=== PATIENT | male | born 1975 | race American Indian/Alaskan Native ===

== ENCOUNTER 2017-05-03 09:46 | Emergency (ER) | payer BC ==
[2017-05-03 10:51] LABS: Eosinophils % (Auto) 3.9 % (0.0-4.3); Hematocrit 42.1 % (35.5-45.6); Hemoglobin 13.6 gm/dl (11.8-15.2); Mean Corpuscular HGB Conc 32 % (32-34); Mean Corpuscular Volume 78 fl (84-94); Platelet Count 198 K/mm3 (140-440); Red Blood Count 5.38 M/mm3 (3.65-5.03); Red Cell Distribution Width 16.4 % (13.2-15.2); White Blood Count 4.9 K/mm3 (4.5-11.0)
[2017-05-03 10:53] LABS: Mean Corpuscular Hemoglobin 25 pg (28-32)
[2017-05-03 11:06] LABS: Anion Gap 18 mmol/L; Blood Urea Nitrogen 11 mg/dL (9-20); Calcium 8.8 mg/dL (8.4-10.2); Carbon Dioxide 25 mmol/L (22-30); Chloride 102.2 mmol/L (98-107); Glucose 130 mg/dL (75-100); Potassium 3.7 mmol/L (3.6-5.0); Sodium 141 mmol/L (137-145)
[2017-05-03 11:35] LABS: Bilirubin,Urine NEG (Negative); Blood,Urine MOD (Negative); Ketones,Urine NEG (Negative); Leukocyte Esterase,Urine NEG (Negative); Mucus,Urine FEW /HPF; Nitrite,Urine NEG (Negative); Protein,Urine <15 mg/dL mg/dL (Negative); Urobilinogen,Urine < 2.0 mg/dL (<2.0)
[2017-05-03] MEDS ORDERED: TORADOL IV ONE (11:47)
--- NOTE | 2017-05-03 14:11 | Emergency Department Report ---
ED General Adult HPI - General Chief complaint: Urogenital-Male Stated complaint: KIDNEY PAIN Time Seen by Provider: 05/03/17 14:09 Source: patient Mode of arrival: Ambulatory Limitations: No Limitations - History of Present Illness Initial comments: Patient is a 41-year-old male with a past medical history of high blood pressure and kidney stones. Patient states that earlier today he is experiencing right colic pain is severe, 9/10 it is sharp and non radiating. Nothing makes the pain better or worse. He states that he has had similar pain before in the past and this feels like a previous kidney stone episode. Patient denies nausea or vomiting. Severity scale (0 -10): 10 - Related Data Home Medications Medication Instructions Recorded Confirmed Last Taken Hydrochlorothiazide [Hctz] 0 mg PO QDAY 12/12/15 12/12/15 12/12/15 0 MG Previous Rx's Medication Instructions Recorded Last Taken Type Albuterol Sulfate [Ventolin HFA] 2 puff IH Q4H PRN #2 hfa.aer.ad 03/14/15 Rx 2 PUFF Albuterol Sulfate [Albuterol 0.63% 0.63 mg IH Q4H PRN #25 neb 09/16/15 12/12/15 Rx NEBS] 0.63 MG Albuterol Sulfate [Ventolin HFA] 2 puff IH Q4H PRN #1 hfa.aer.ad 09/16/15 Rx 2 PUFF ALBUTEROL Inhaler [ProAir HFA 2 puff INHALATION Q4H PRN #1 inha 12/13/15 Unknown Rx Inhaler] predniSONE [Deltasone] 20 mg PO BID #10 tab 12/13/15 Unknown Rx Allergies Allergy/AdvReac Type Severity Reaction Status Date / Time No Known Allergies Allergy Verified 05/03/17 10:24 ED Review of Systems ROS: Stated complaint: KIDNEY PAIN Other details as noted in HPI Constitutional: denies: chills, fever Eyes: denies: eye pain, eye discharge, vision change ENT: denies: ear pain, throat pain Respiratory: denies: cough, shortness of breath, wheezing Cardiovascular: denies: chest pain, palpitations Endocrine: no symptoms reported Gastrointestinal: as per HPI, nausea, other (right flank pain ). denies: diarrhea Genitourinary: denies: urgency, dysuria Musculoskeletal: denies: back pain, joint swelling, arthralgia Skin: denies: rash, lesions Neurological: denies: headache, weakness, paresthesias Psychiatric: denies: anxiety, depression Hematological/Lymphatic: denies: easy bleeding, easy bruising ED Past Medical Hx - Past Medical History Previous Medical History?: Yes Hx Hypertension: Yes (noncompliance) Hx Heart Attack/AMI: Yes Hx Asthma: Yes - Surgical History Additional Surgical History: right hand surgery - Social History Smoking Status: Current Every Day Smoker Substance Use Type: Alcohol - Medications Home Medications: Home Medications Medication Instructions Recorded Confirmed Last Taken Type Albuterol Sulfate [Ventolin HFA] 2 puff IH Q4H PRN #2 hfa.aer.ad 03/14/1512/12/15 Rx 2 PUFF Albuterol Sulfate [Albuterol 0.63% 0.63 mg IH Q4H PRN #25 neb 09/16/15 12/12/15 12/12/15 Rx NEBS] 0.63 MG Albuterol Sulfate [Ventolin HFA] 2 puff IH Q4H PRN #1 hfa.aer.ad 09/16/1512/12/15 Rx 2 PUFF Hydrochlorothiazide [Hctz] 0 mg PO QDAY 12/12/15 12/12/15 12/12/15 History 0 MG ALBUTEROL Inhaler [ProAir HFA 2 puff INHALATION Q4H PRN #1 inha 12/13/15 Unknown Rx Inhaler] predniSONE [Deltasone] 20 mg PO BID #10 tab 12/13/15 Unknown Rx ED Physical Exam - General Limitations: No Limitations General appearance: alert, in no apparent distress - Head Head exam: Present: atraumatic - Eye Eye exam: Present: normal appearance, PERRL, EOMI - ENT ENT exam: Present: normal exam - Neck Neck exam: Present: normal inspection - Respiratory Respiratory exam: Present: normal lung sounds bilaterally - Cardiovascular Cardiovascular Exam: Present: regular rate, normal rhythm - GI/Abdominal GI/Abdominal exam: Present: soft. Absent: distended, tenderness - Rectal Rectal exam: Present: deferred - Extremities Exam Extremities exam: Present: normal inspection, full ROM - Back Exam Back exam: Present: normal inspection - Neurological Exam Neurological exam: Present: alert, oriented X3 - Psychiatric Psychiatric exam: Present: normal affect - Skin Skin exam: Present: warm, dry ED Course Vital Signs 05/03/17 05/03/17 05/03/17 10:24 13:34 14:00 Temperature 98.5 F Pulse Rate 83 74 Respiratory 16 16 18 Rate Blood Pressure 156/112 Blood Pressure 148/94 [Left] O2 Sat by Pulse 97 100 Oximetry 05/03/17 18:57 Temperature 98.8 F Pulse Rate 68 Respiratory 16 Rate Blood Pressure Blood Pressure 155/110 [Left] O2 Sat by Pulse 96 Oximetry - Reevaluation(s) Reevaluation #1: 05/03/17 17:01 Patient states that his renal colic pain is back. 4 mg of morphine has been ordered. Discussed findings of CT scan with patient he has a 6 mm mildly obstructing stone. Reevaluation #2: 05/03/17 19:47 Patient states that he wants to go by private vehicle. Once his to drive him. Since patient at that's not possible. Patient became upset and angry and threatening to leave. Discussed with patient about risks of leaving against medical transcriber. Patient calmed down. N agree to stay and be transferred. Patient's pain is well-controlled vital signs are wnl. - Consultations Consultation #1: 05/03/17 19:[address] Silverio of [facility]. Unable to obtain a urology consult patient will be a direct admit to the inpatient hospital discussed with patient and he agrees with plan patient will be transported by EMS. Patient's pain is currently under control. ED Medical Decision Making - Lab Data Result diagrams: 05/03/17 10:36 05/03/17 10:36 Laboratory Tests 05/03/17 05/03/17 05/03/17 10:25 10:36 10:36 WBC 4.9 RBC 5.38 H Hgb 13.6 Hct 42.1 MCV 78 L MCH 25 L MCHC 32 RDW 16.4 H Plt Count 198 Lymph % (Auto) 29.4 Crawford % (Auto) 6.7 Eos % (Auto) 3.9 Baso % (Auto) 1.0 Lymph # 1.4 Crawford # 0.3 Eos # 0.2 Baso # 0.0 Seg Neutrophils % 59.0 Seg Neutrophils # 2.9 Sodium 141 Potassium 3.7 Chloride 102.2 Carbon Dioxide 25 Anion Gap 18 BUN 11 Creatinine 1.1 Estimated GFR > 60 BUN/Creatinine Ratio 10.00 Glucose 130 H Calcium 8.8 Urine Color Yellow Urine Turbidity Clear Urine pH 6.0 Ur Specific Given 1.017 Urine Protein <15 mg/dl Urine Glucose (UA) Neg Urine Ketones Neg Urine Blood Mod Urine Nitrite Neg Urine Bilirubin Neg Urine Urobilinogen < 2.0 Ur Leukocyte Esterase Neg Urine WBC (Auto) 2.0 Urine RBC (Auto) 39.0 U Epithel Cells (Auto) < 1.0 Urine Mucus Few - Radiology Data Radiology results: report reviewed, image reviewed - Medical Decision Making Chief medical diagnosis: Kidney stone Differential diagnoses: UTI pyleonephritis, pancreatitis Will get cbc, cmp, analgesic medication, ct scan and fluids. CT scan showed a 6 mm mildly obstructing stone in right ureter with moderate hydronephrosis. Discussed results with patient and the need for urology evaluation. We'll consult urology and will transfer patient due to not having available services Hospital. Critical care attestation.: If time is entered above; I have spent that time in minutes in the direct care of this critically ill patient, excluding procedure time. ED Disposition Clinical Impression: Renal colic, Right nephrolithiasis, Acute right flank pain Disposition: [id number] ANOTHER TYPE HLTHCARE Is pt being admited?: No Does the pt Need Aspirin: No Condition: Fair Referrals: PRIMARY CAREMD [Primary Care Provider] - 3-5 Days Time of Disposition: 20:26
[2017-05-03] MEDS ORDERED: MORPHINE IV ONE ×2 (14:29→17:01)
[2017-05-03] MEDS ORDERED: ZOFRAN ONE (14:38)
[2017-05-03] MEDS ORDERED: ZOFRAN IV ONE (14:45)
--- NOTE | 2017-05-03 15:36 | Cat Scan Report ---
CT OF THE ABDOMEN AND PELVIS WITHOUT CONTRAST HISTORY: Right flank pain. TECHNIQUE: Helical CT without contrast. Sagittal and coronal reformatted images. FINDINGS: A 6 x 6 x 5 mm calculus is identified in the distal right ureter. There is moderate upstream right hydronephrosis and right perinephric stranding. No left ureteral stones. There are 3 punctate calyceal stones in the right kidney and one punctate calyceal stone in the left kidney. Within the limits of a noncontrast exam, the remaining abdominal and pelvic viscera are within normal limits. The liver, biliary system, pancreas, spleen, adrenal glands and bladder are unremarkable. The bowel loops are normal caliber and wall thickness. Normal appendix. The aorta is normal caliber. No ascites, bulky adenopathy or inflammatory changes. The lung bases are clear. Normal heart size. No suspicious bony lesion. IMPRESSION: 6 mm distal right ureteral stone, mildly obstructing. Punctate bilateral renal stones as described.
[2017-05-03] MEDS ORDERED: NACL 0.9% 1000 ML 1,000 ML IV ONE (16:07)
[2017-05-03] MEDS ORDERED: NORCO 10/325 PO ONE (16:07)
[2017-05-03] MEDS ORDERED: FLOMAX PO ONE (16:30)
[2017-05-03] MEDS ORDERED: MORPHINE ONE (17:01)
[2017-05-03 18:59] VITALS: BP 155/110
== END 2017-05-03 21:10 | disposition other institution (70) ==
LOC: ED 09:46
DX: N23 Unspecified renal colic (principal); N20.0 Calculus of kidney; R10.30 Lower abdominal pain, unspecified; I10 Essential (primary) hypertension; I25.2 Old myocardial infarction; J45.909 Unspecified asthma, uncomplicated; F17.200 Nicotine dependence, unspecified, uncomplicated
CPT/HCPCS: 36415; 74176; 80048; 81001; 85025; 96361; 96374; 96375; 96376; 99285; J1885; J2270; J2405; J7030